=== PATIENT | male | born 1970 | race Caucasian/White ===

== ENCOUNTER 2018-08-15 14:13 | Emergency (ER) | payer BC ==
[2018-08-15 14:29] VITALS: BP 117/78
--- NOTE | 2018-08-15 14:55 | UC ---
HPI Febrile Illness - HPI Summary HPI Summary: 47-year-old male comes in with chief complaint of fevers and shortness of breath. 2 days ago he was in [place] and he started feeling ill with some nausea and just overall feeling of sickness. He reported his flight to come back here to [place] and during the flight he had a fever 104 which did come down some with acetaminophen. He's been fatigued he's been sleeping a lot. Minimal to no rhinorrhea no sore throat no ear pain. Does have some cough and does feel short of breath. Denies any chest pain. Acetaminophen helps with the fever. No headache no neck stiffness no dysuria no diarrhea no abdominal pain no rash. No calf pain no history of deep venous thrombosis no calf swelling. His symptoms started prior to getting on the plane. No rash no dysuria no diarrhea. - History of Current Complaint Chief Complaint: UCGeneralIllness Time Seen by Provider: 08/15/18 14:43 Pain Intensity: 0 - Allergy/Home Medications Allergies/Adverse Reactions: Allergies Allergy/AdvReac Type Severity Reaction Status Date / Time SEASONAL Allergy Severe Congestion Uncoded 08/15/18 14:28 mold Allergy Difficulty Uncoded 08/15/18 14:28 Breathing Home Medications: Home Medications Acetaminophen [Tylenol] 1,000 mg PO TID PRN 08/15/18 [History Confirmed 08/15/18 ] PMH/Surg Hx/FS Hx/Imm Hx Previously Healthy: Yes - Surgical History Surgical History: None - Family History Known Family History: Positive: None Family History: NON CONTRIBUTORY - Social History Alcohol Use: Weekly Alcohol Amount: 2 beers/day Substance Use Type: None Smoking Status (MU): Never Smoked Tobacco Review of Systems All Other Systems Reviewed And Are Negative: Yes Constitutional: Positive: Fever, Chills Skin: Positive: Negative Eyes: Positive: Negative ENT: Positive: Negative Respiratory: Positive: Shortness Of Breath, Cough, Other - see hpi Cardiovascular: Positive: Negative Gastrointestinal: Positive: Negative Genitourinary: Positive: Negative Motor: Positive: Negative Neurovascular: Positive: Negative Musculoskeletal: Positive: Negative. Negative: Calf Tenderness Neurological: Positive: Negative Psychological: Positive: Negative Is Patient Immunocompromised?: No Physical Exam Triage Information Reviewed: Yes Appearance: Well-Appearing, No Pain Distress, Well-Nourished Vital Signs: Initial Vital Signs Temp 98.8 F 08/15/18 14:19 Pulse 67 07/09/19 14:19 Resp 18 08/15/18 14:19 BP 117/78 08/15/18 14:19 Pulse Ox 96 08/15/18 14:19 Vital Signs Reviewed: Yes Eye Exam: Normal Eyes: Positive: Conjunctiva Clear ENT: Positive: Pharynx normal, TMs normal Neck: Positive: Supple Respiratory: Positive: Lungs clear, Normal breath sounds, No respiratory distress Cardiovascular: Positive: RRR Musculoskeletal Exam: Normal Musculoskeletal: Positive: Strength Intact, ROM Intact, No Edema - NO CALF TENDERNESS Neurological Exam: Normal Neurological: Positive: Alert, Muscle Tone Normal Psychological Exam: Normal Psychological: Positive: Age Appropriate Behavior Skin Exam: Normal Course/Dx - Course Course Of Treatment: Patient Name: TIMO TORRES Medical Record#: [id number] Ordering Physician: Abhinav Hubbard MD Acct.#: [id number] : 1970 Age: 47 Sex: M Location: [facility] Exam Date: 08/15/18 1453 ADM Status: REG ER Order Information: CHEST PA LAT 2 VWS Accession Number: [id number] CPT: 21005 HISTORY: fever,sob COMPARISONS: July 25, 2012 VIEWS: 4: Frontal dual-energy and lateral views of the chest. FINDINGS: CARDIOMEDIASTINAL SILHOUETTE: The cardiomediastinal silhouette is normal. LUIGI: The luigi are normal. PLEURA: The costophrenic angles are sharp. No pleural abnormalities are noted. LUNG PARENCHYMA: The lungs are clear. ABDOMEN: The upper abdomen is clear. There is no subphrenic gas. BONES AND SOFT TISSUES: No bone or soft tissue abnormalities are noted. OTHER: None. IMPRESSION: NO ACTIVE CARDIOPULMONARY DISEASE. <Electronically signed by Kenyon Vences MD in OV> 08/15/18 7480 I discussed the x-rays with the patient. No pneumonia found on chest x-ray. Influenza swab was negative. Plan at this time is treat symptomatically with acetaminophen or ibuprofen and expectorants. We discussed the possibility of deep venous thrombosis and pulmonary embolus. Patient started feeling ill before he got on the plane but that does not completely rule out DVT or PE. At this time he has no chest pain is not hypoxic is not tachycardic he has no calf tenderness or swelling. We discussed that if he did not improve or worsened he needs to go the emergency department for further evaluation and care. - Diagnoses Provider Diagnosis: Fever, Shortness of breath Discharge - Sign-Out/Discharge Documenting (check all that apply): Patient Departure All imaging exams completed and their final reports reviewed: No Studies - Discharge Plan Condition: Stable Disposition: HOME Patient Education Materials: Fever in Adults (ED), Shortness of Breath (ED) Referrals: Pamela Cantu MD [Primary Care Provider] - Additional Instructions: FOLLOW UP WITH YOUR DOCTOR. GO TO THE EMERGENCY DEPARTMENT SOONER IF YOU DO NOT IMPROVE OR YOUR CONDITION WORSENS; CHEST PAIN, SHORTNESS OF BREATH, YOU FEEL ILL OR ANY QUESTIONS OR CONCERNS. - Billing Disposition and Condition Condition: STABLE Disposition: Home
[2018-08-15 15:13] LABS: Influenza A Molecular NEGATIVE (Negative); Influenza B Molecular NEGATIVE (Negative)
[2018-08-15] MEDS ORDERED: Albuterol 2.5 MG/3 ML NEB.SOL* (0.083%) INH ONE (15:53)
== END 2018-08-15 16:58 | disposition home or self-care (01) ==
LOC: UCEAST 14:13
DX: R50.9 Fever, unspecified (principal); R06.02 Shortness of breath; R05 Cough; R53.83 Other fatigue; Z91.09 Other allergy status, other than to drugs and biological substances
CPT/HCPCS: 71046; 99212; G0463

== ENCOUNTER 2018-08-19 08:27 | Emergency (ER) | payer BC ==
[2018-08-19 08:49] VITALS: BP 123/78
--- NOTE | 2018-08-19 08:56 | UC ---
UC General HPI - HPI Summary HPI Summary: 47-year-old male comes in with a chief complaint of fever and feeling ill. 5-6 days ago patient started feeling ill with shortness of breath and feeling lightheaded. He had a fever as high as 104. He's continued to feel ill over the last 5 days. He developed diarrhea the last 1 day. Been having some abdominal discomfort the whole time now the abdominal pain is worse. Reports the diarrhea is watery. He also had a fever of 101 overnight. Also has a headache. Feels lightheaded when he stands up. Been taking acetaminophen which does decrease the fever. - History of Current Complaint Chief Complaint: UCAbdominalPain Stated Complaint: FEVER/STOMACH PAIN Time Seen by Provider: 08/19/18 08:40 Pain Intensity: 3 - Allergy/Home Medications Allergies/Adverse Reactions: Allergies Allergy/AdvReac Type Severity Reaction Status Date / Time SEASONAL Allergy Severe Congestion Uncoded 08/19/18 08:42 mold Allergy Difficulty Uncoded 08/19/18 08:42 Breathing PMH/Surg Hx/FS Hx/Imm Hx Previously Healthy: Yes - Surgical History Surgical History: None - Family History Known Family History: Positive: None Family History: NON CONTRIBUTORY - Social History Alcohol Use: Weekly Alcohol Amount: 2 beers/day Substance Use Type: None Smoking Status (MU): Never Smoked Tobacco Review of Systems All Other Systems Reviewed And Are Negative: Yes Constitutional: Positive: Fever, Chills, Fatigue Skin: Positive: Negative Eyes: Positive: Negative ENT: Positive: Sore Throat Respiratory: Positive: Shortness Of Breath Cardiovascular: Positive: Negative Gastrointestinal: Positive: Abdominal Pain, Diarrhea Genitourinary: Negative: Dysuria Motor: Positive: Negative Neurovascular: Positive: Negative Musculoskeletal: Positive: Negative Neurological: Positive: Headache Psychological: Positive: Negative Is Patient Immunocompromised?: No Physical Exam Triage Information Reviewed: Yes Appearance: Well-Nourished, Ill-Appearing - MILD, Pain Distress - MILD Vital Signs: Initial Vital Signs Temp 98.8 F 08/19/18 08:42 Pulse 79 08/19/18 08:42 Resp 14 08/19/18 08:42 BP 123/78 08/19/18 08:42 Pulse Ox 96 08/19/18 08:42 Vital Signs Reviewed: Yes Eye Exam: Normal Eyes: Positive: Conjunctiva Clear ENT: Positive: Other - TONGUE IS COATED Neck: Positive: Supple Respiratory: Positive: Lungs clear, Normal breath sounds, No respiratory distress Cardiovascular: Positive: RRR Abdomen Description: Positive: Other: - DIFFUSE ABDOMINAL MILD TENDERNESS TO PALPATION Bowel Sounds: Positive: Hypoactive Musculoskeletal: Positive: Strength Intact, ROM Intact Neurological: Positive: Alert, Muscle Tone Normal Psychological: Positive: Normal Response To Family, Age Appropriate Behavior Skin Exam: Normal Course/Dx - Course Course Of Treatment: Patient's going on day 5 or 6 of the illness with fever of unknown origin after traveling in [facility]. Now is feeling lightheaded and having abdominal pain and watery diarrhea. I recommended further evaluation in the emergency department. Patient prefers to go by POV. Patient did give a stool sample here which we sent with him to the emergency department. - Diagnoses Provider Diagnosis: Fever, Diarrhea, Dehydration Discharge - Sign-Out/Discharge Documenting (check all that apply): Patient Departure All imaging exams completed and their final reports reviewed: No Studies - Discharge Plan Condition: Stable Disposition: HOME-RECOMMEND TO ED Patient Education Materials: Dehydration (ED), Acute Diarrhea (ED), Abdominal Pain (ED) Referrals: Pamela Cantu MD [Primary Care Provider] - Additional Instructions: GO DIRECTLY TO THE EMERGENCY DEPARTMENT FOR FURTHER EVALUATION. - Billing Disposition and Condition Condition: STABLE Disposition: Home-Recommend to ED
== END 2018-08-19 09:06 | disposition home health service (06) ==
LOC: UCEAST 08:27
DX: R50.9 Fever, unspecified (principal); R19.7 Diarrhea, unspecified; E86.0 Dehydration
CPT/HCPCS: 99212; G0463

== ENCOUNTER 2018-08-19 09:27 | Emergency (ER) | payer BC ==
[2018-08-19] MEDS ORDERED: NS 0.9% 1000 ML** 1,000 ML IV ONE ×2 (10:30→10:43)
--- NOTE | 2018-08-19 10:43 | ED ---
Abdominal Pain/Male - HPI Summary HPI Summary: Patient is a 47 y old M presenting to the [facility] accompanied by his and daughter with a chief complaint of constant RLQ abdominal pain described as cramping with an onset of 1 week with a severity of 4/10. Patient reports intermittent fevers and diarrhea. Patient reports decreased appetite. Patient denies blood or mucous in his bowel movements. He denies nausea and vomiting. Patient denies swelling in the bilateral legs. Symptoms are alleviated by nothing and aggravated by nothing. Patient states he traveled to [facility] and arrived back to the [facility] 5 days ago when he had an overnight car ride to the airport when his stomach started to hurt. Patient reports on the final flight he had a fever 105F for which he took paracetamol which alleviated his fever. Patient also reports to have had chills and diaphoresis. Patient reports to have had abdominal bloating and constipation which he describes as feeling "blocked" around the ileocecal valve where he feels slow painful movement. Patient reports 2 days ago he had an episode of diarrhea and since then he has an episode of diarrhea after drinking any liquids. reports that during the trip, several family members including their daughter and neighbors in [facility] had episodes of vomiting and diarrhea which resolved within 24 hours. reports to overhear the pharmacist say that a virus was going around and is concerned of bugs [place] not drinking the water. - History of Current Complaint Chief Complaint: Pippa Stated Complaint: "FEVER/HEADACHE PER PT COMING FROM [facility]" Time Seen by Provider: 08/19/18 10:29 Hx Obtained From: Patient, Family/Tutor Coordinator - Onset/Duration: Lasting Weeks - 1, Still Present Timing: Constant - Abdominal Pain Severity Initially: Moderate Severity Currently: Moderate Pain Intensity: 4 Pain Scale Used: 0-10 Numeric Location: Discrete At: RLQ Radiates: No Aggravating Factor(s): Nothing Alleviating Factor(s): Nothing Associated Signs And Symptoms: Positive: Negative - blood or mucous in his bowel movements, swelling in the bilateral legs, Fever, Decreased Appetite, Diarrhea. Negative: Blood in Stool, Nausea, Vomiting - Allergies/Home Medications Allergies/Adverse Reactions: Allergies Allergy/AdvReac Type Severity Reaction Status Date / Time SEASONAL Allergy Severe Congestion Uncoded 08/19/18 09:33 mold Allergy Difficulty Uncoded 08/19/18 09:33 Breathing PMH/Surg Hx/FS Hx/Imm Hx Endocrine/Hematology History: Denies: Hx Diabetes, Hx Thyroid Disease Cardiovascular History: Denies: Hx Hypertension Respiratory History: Denies: Hx Asthma, Hx Chronic Obstructive Pulmonary Disease (COPD) GI History: Reports: Hx Gastroesophageal Reflux Disease Denies: Hx Ulcer Musculoskeletal History: Reports: Hx of Fracture(s) - rt tibia Denies: Hx Rheumatoid Arthritis, Hx Osteoporosis - Surgical History Surgical History: None Surgery Procedure, Year, and Place: None Infectious Disease History: No Infectious Disease History: Reports: Traveled Outside the [place] in Last 30 Days Denies: Hx Hepatitis, Hx Human Immunodeficiency Virus (HIV), History Other Infectious Disease - Family History Known Family History: Negative: Hypertension - Social History Alcohol Use: Weekly Alcohol Amount: 2 beers/day Hx Substance Use: No Substance Use Type: Reports: None Hx Tobacco Use: No Smoking Status (MU): Never Smoked Tobacco Review of Systems Positive: Fever Gastrointestinal: Negative - blood or mucous in his bowel movements Positive: Abdominal Pain - RLQ, Diarrhea, Other - decreased appetite . Negative : Vomiting, Nausea Musculoskeletal: Negative - swelling in the bilateral legs. All Other Systems Reviewed And Are Negative: Yes Physical Exam - Summary Physical Exam Summary: VITAL SIGNS: Reviewed. GENERAL: Patient is a well-developed and nourished male who is lying comfortable in the stretcher. Patient is not in any acute respiratory distress. HEAD AND FACE: Normocephalic and atraumatic. EYES: PERRLA, EOMI x 2, No injected conjunctiva. EARS: Hearing grossly intact. Ear canals and tympanic membranes are WNL. MOUTH: Oropharynx within normal limits. NECK: Supple, trachea is midline, no adenopathy, no JVD. CHEST: Symmetric, no tenderness at palpation. LUNGS: Clear to auscultation bilaterally. No wheezing or crackles. CVS: RRR, S1 and S2 present, no murmurs or gallops appreciated. ABDOMEN: Soft, non-tender. No signs of distention. Positive bowel sounds. No rebound, no guarding, and no masses palpated. No abdominal bruit or pulsations. EXTREMITIES: FROM in all major joints, no edema, no cyanosis or clubbing. NEURO: Alert and oriented x 3. No acute neurological deficits. Speech is normal. SKIN: Dry and warm. Triage Information Reviewed: Yes Vital Signs On Initial Exam: Initial Vitals Temp Pulse Resp BP Pulse Ox 98.1 F 80 14 140/80 97 08/19/18 09:29 08/19/18 09:29 08/19/18 09:29 08/19/18 09:29 08/19/18 09:29 Vital Signs Reviewed: Yes Diagnostics - Vital Signs Vital Signs Temp Pulse Resp BP Pulse Ox 08/19/18 10:02 75 128/79 96 08/19/18 09:29 98.1 F 80 14 140/80 97 - Laboratory Lab Results: Lab Results 08/19/18 Range/Units 08:07 Parasite Exam Pending Result Diagrams: 08/19/18 10:43 08/19/18 10:43 Lab Statement: Any lab studies that have been ordered have been reviewed, and results considered in the medical decision making process. Re-Evaluation - Re-Evaluation First Eval Re-Evaluation Time: 13:26 Comment: Physician discussed discharge with patient. Patient agrees. Abdominal Pain Male Course/Dx - Course Assessment/Plan: Patient is a 47 y old M presenting to the [facility] accompanied by his and daughter with a chief complaint of constant RLQ abdominal pain described as cramping with an onset of 1 week with a severity of 4/10. Patient reports intermittent fevers and diarrhea. Patient reports decreased appetite. Patient denies blood or mucous in his bowel movements. He denies nausea and vomiting. Patient denies swelling in the bilateral legs. Symptoms are alleviated by nothing and aggravated by nothing. Patient states he traveled to [facility] and arrived back to the [facility] 5 days ago when he had an overnight car ride to the airport when his stomach started to hurt. Patient reports on the final flight he had a fever 105F for which he took paracetamol which alleviated his fever. Patient also reports to have had chills and diaphoresis. Patient reports to have had abdominal bloating and constipation which he describes as feeling "blocked" around the ileocecal valve where he feels slow painful movement. Patient reports 2 days ago he had an episode of diarrhea and since then he has an episode of diarrhea after drinking any liquids. reports that during the trip, several family members including their daughter and neighbors in [facility] had episodes of vomiting and diarrhea which resolved within 24 hours. reports to overhear the pharmacist say that a virus was going around and is concerned of bugs [place] they were not drinking the water. Blood work without any significant abnormality except for glucose of 101, AST 63, CRP of 39.6, urinalysis negative for UTI. C. difficile is negative and fecal leukocytes are positive. Because the patient is having fevers, diarrhea still continues, the patient is having an infectious diarrhea. Therefore I decided to place the patient on Bactrim, continue with the present diet and follow-up with primary care physician. The patient is feeling better and he is hemodynamically stable. Before discharge, he developed a fever, therefore he was given Tylenol. Patient reports that after hydration, he feels a lot better. I discussed all the findings and test results with the patient. Patient was instructed to return to the emergency room immediately if any of the symptoms return worsens. Plan of care was discussed with the patient and he understands and agrees. All questions were answered at patient satisfaction. There were no further complaints or concerns. Lung exam before discharge: CTA B/L. Good air exchange. No wheezing or crackles heard. CVS: S1 and S2 present. No murmurs appreciated. Patient is alert and oriented x 3. Patient is hemodynamically stable. Patient will be discharged home with follow up PCP in the next 2-3 days. - Diagnoses Provider Diagnoses: Infectious diarrhea Discharge - Sign-Out/Discharge Documenting (check all that apply): Patient Departure - discharge Patient Received Moderate/Deep Sedation with Procedure: No - Discharge Plan Condition: Stable Disposition: HOME Prescriptions: Ciprofloxacin TAB* [Cipro 500 MG TAB*] 500 mg PO BID #10 tab Nitazoxanide [Alinia] 500 mg PO BID #10 tablet Sulfamethox/Trimethoprim DS* [Bactrim DS 800/160 TAB*] 1 tab PO BID #14 tab Patient Education Materials: Acute Diarrhea (ED) Referrals: Pamela Cantu MD [Primary Care Provider] - 3 Days Additional Instructions: Follow up with primary care provider within 3 days. Return to the Emergency Department for any new or worsening symptoms. - Billing Disposition and Condition Condition: STABLE Disposition: Home - Attestation Statements Document Initiated by Scribe: Yes Documenting Scribe: Samantha Catherine Provider For Whom Scribe is Documenting (Include Credential): Caio Lomas MD Scribe Attestation: Samantha Garrido, scribed for Caio Lomas MD on 08/21/18 at 2004. Scribe Documentation Reviewed: Yes Provider Attestation: The documentation as recorded by the scribe, Samantha Catherine accurately reflects the service I personally performed and the decisions made by me, Caio Lomas MD Status of Scribe Document: Viewed
[2018-08-19 10:57] LABS: ABS Lymphocytes 0.8 10^3/ul (1.0-4.8); ABS Monocytes 0.7 10^3/ul (0-0.8); ABS Neutrophils 5.6 10^3/ul (1.5-7.7); Eosinophil % 0.1 %; Hematocrit 42 % (42-52); Hemoglobin 14.5 g/dL (14.0-18.0); Lymphocyte % 11.5 %; Mean Corpuscular HGB Conc 35 g/dL (31-36); Mean Corpuscular Hemoglobin 30 pg (27-31); Mean Corpuscular Volume 86 fL (80-94); Mean Platelet Volume 7.5 fL (7.4-10.4); Nucleated Red Blood Cells % 0.1; Platelet Count 257 10^3/uL (150-450); Red Blood Count 4.87 10^6 /uL (4.18-5.48); Red Cell Distribution Width 13 % (10-15); White Blood Count 7.1 10^3/uL (3.5-10.8)
[2018-08-19 11:26] LABS: Albumin 3.9 g/dL (3.2-5.2); Albumin/Globulin Ratio 1.2 (1-3); BUN/Creatinine Ratio 11.1 (8-20); C Reactive Protein 39.67 mg/L (<8.01); Calcium 9.8 mg/dL (8.6-10.3); EGFR African American 124.1 (>60); EGFR Non-African American 102.6 (>60); Globulin 3.2 g/dL (2-4); Potassium 4.2 mmol/L (3.5-5.0); Total Bilirubin 0.6 mg/dL (0.2-1.0); Total Protein 7.1 g/dL (6.4-8.9)
[2018-08-19] MEDS ORDERED: Sulfamethox/Trimethoprim DS 800/160* TAB PO ONE (13:24)
[2018-08-19 13:33] LABS: Urine Appearance Clear; Urine Bilirubin Negative (Negative); Urine Blood Negative (Negative); Urine Color Yellow; Urine Glucose Negative (Negative); Urine Ketones Trace (Negative); Urine Nitrite Negative (Negative); Urine Protein Negative (Negative); Urine Specific Gravity 1.008 (1.010-1.030); Urine Urobilinogen Negative (Negative)
[2018-08-19] MEDS ORDERED: Acetaminophen TAB* 325 MG PO ONE (13:34)
[2018-08-19 13:48] VITALS: BP 115/80
--- NOTE | 2018-08-22 06:00 | PN ---
Progress Note - Progress Note Date of Service: 08/22/18 Note: patient stool culture is positive for campylbacter and cryptosporidium. patient was placed on nitazoxamide and cipro which will treat both. no further action required.
== END 2018-08-19 13:48 | disposition home or self-care (01) ==
LOC: ED 09:27
DX: A09 Infectious gastroenteritis and colitis, unspecified (principal); K21.9 Gastro-esophageal reflux disease without esophagitis; E86.0 Dehydration
CPT/HCPCS: 36415; 80053; 81003; 83630; 83690; 83880; 85025; 86140; 87045; 87046; 87077; 87177; 87209; 87328; 87329; 87493; 87899; 96360; 96361; 99212; 99283; A9270-GY; G0463